=== PATIENT | female | born 1990 | race Two or more races ===

== ENCOUNTER 2024-02-11 00:06 | Emergency (ER) | payer OTHER, SELFPAY ==
[2024-02-11 00:11] VITALS: BP 116/72; PULSE 60; RESP 18; TEMP 36.6; O2SAT 100
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
[2024-02-11] MEDS: MUPIROCIN 2% OINT 22 GM TUBE 1 APPLIC TOPICAL (00:32)
== END 2024-02-11 00:55 | disposition home or self-care (01) ==
PROVIDERS: Emergency Provider Emergency Medicine
DX: Z48.816 Encounter for surgical aftercare following surgery on the genitourinary system (principal)
CPT/HCPCS: 99283; A9270